=== PATIENT | female | born 1955 | race Caucasian/White ===

== ENCOUNTER → 2018-12-07 | Outpatient (CLI) | payer OTHER ==
[~2018-12-07] MED LIST: ASPI81CH PO; AZIT250 PO; DIABETA PO; DIPATR PO; IRBHYD150 PO; LOSA25 PO; METF500 PO; NEBI10 PO; NEBI5 PO; ONDA4ODT MM; RXDIPATR PO; RXONDA4ODT MM; TRIHYD253A PO; [UNRECOGNIZED DRUG - OTHER] PO
[2018-12-10 09:58] LABS: Adenovirus F 40/41 Not Detected (NOT DETECT); Astrovirus Not Detected (NOT DETECT); Campylobacter Sp Not Detected (NOT DETECT); Cryptosporidium Not Detected (NOT DETECT); Cyclospora Cayetanensis Not Detected (NOT DETECT); E. Coli O157 Not Detected (NOT DETECT); Entamoeba Histolytica Not Detected (NOT DETECT); Enteroaggregative E. coli-EAEC Not Detected (NOT DETECT); Enteropathogenic E. coli-EPEC Not Detected (NOT DETECT); Enterotoxigenic E. coli-ETEC Not Detected (NOT DETECT); Giardia Lamblia Not Detected (NOT DETECT); Norovirus GI/GII Not Detected (NOT DETECT); Plesiomonas Shigelloides Not Detected (NOT DETECT); Rotavirus A Not Detected (NOT DETECT); Salmonella Sp Not Detected (NOT DETECT); Sapovirus Not Detected (NOT DETECT); Shiga Toxin-prod E. coli-STEC Not Detected (NOT DETECT); Shigella/Enteroin E. coli-EIEC Not Detected (NOT DETECT); Vibrio Cholerae Not Detected (NOT DETECT); Vibrio Sp Not Detected (NOT DETECT); Yersinia Enterocolitica Not Detected (NOT DETECT)
== END | disposition home or self-care (01) ==
LOC: LAB SHORT 11:30 → LAB SRC 11:30
PROVIDERS: Physician Assistant
DX: K52.9 Noninfective gastroenteritis and colitis, unspecified (principal)
CPT/HCPCS: 87507

== ENCOUNTER → 2019-04-12 | Outpatient (CLI) | payer OTHER | LOC: LAB 11:40 → LAB SHORT 11:40 | DX: L08.9 Local infection of the skin and subcutaneous tissue, unspecified (principal) | CPT/HCPCS: 87070; 87205 ==

== ENCOUNTER → 2019-06-27 | Outpatient (CLI) | payer OTHER | LOC: LAB 17:07 → LAB SHORT 17:07 | DX: L08.9 Local infection of the skin and subcutaneous tissue, unspecified (principal) | CPT/HCPCS: 87070; 87205 ==

== ENCOUNTER → 2021-01-26 | Outpatient (CLI) | payer OTHER ==
[2021-01-26 12:39] LABS: Appearance, Urine Clear (Clear); Bilirubin, Urine Neg (Neg); Blood, Urine 4+ (Neg); Color, Urine Yellow (P-Yellow); Glucose Qualitative, Urine 4+ (Neg); Ketones, Urine Neg (Neg); Leukocyte Esterase, Urine Neg (Neg); Nitrite, Urine Neg (Neg); Protein, Urine Neg (Neg); Specific Gravity, Urine 1.015 (1.003-1.022); Urobilinogen, Urine NORM (Normal)
[2021-01-26 13:19] LABS: Squamous Epithelial Cells Few /hpf (Few)
[2021-01-26 13:20] LABS: Bacteria Few /hpf
[2021-01-27 15:11] LABS: HPV 16 Negative (Negative); HPV 18 Negative (Negative); HPV OTHER HR TYPES Negative (Negative)
== END | disposition home or self-care (01) ==
LOC: LAB SRC 11:58 → LAB SHORT 11:58
PROVIDERS: Nurse Practitioner Family
DX: Z12.4 Encounter for screening for malignant neoplasm of cervix (principal); R35.0 Frequency of micturition
CPT/HCPCS: 81001; 87624; G0123

== ENCOUNTER → 2022-05-11 | Outpatient (CLI) | payer OTHER | END | disposition home or self-care (01) | LOC: LAB SHORT 12:55 → LAB 12:55 | DX: Z48.02 Encounter for removal of sutures (principal); L57.0 Actinic keratosis; L08.9 Local infection of the skin and subcutaneous tissue, unspecified | CPT/HCPCS: 87070; 87205 ==

== ENCOUNTER 2023-11-08 08:05 | Emergency (ER) | payer OTHER ==
[~2023-11-08] VITALS: Ht 160 cm; Wt 71.2 kg
[2023-11-08 08:35] VITALS: BP 140/83
[2023-11-08] MEDS ORDERED: CYCL10 PO (10:35)
[2023-11-08] MEDS ORDERED: Norco 5-325 Ta1 EACH PO (10:35)
== END 2023-11-08 10:40 | disposition home or self-care (01) ==
LOC: ER 08:05
DX: M75.01 Adhesive capsulitis of right shoulder (principal); I10 Essential (primary) hypertension; E11.9 Type 2 diabetes mellitus without complications; J45.909 Unspecified asthma, uncomplicated; Z88.1 Allergy status to other antibiotic agents; Z88.8 Allergy status to other drugs, medicaments and biological substances; Z79.84 Long term (current) use of oral hypoglycemic drugs; Z79.82 Long term (current) use of aspirin; Z79.899 Other long term (current) drug therapy
CPT/HCPCS: 93005; 93010; 96372; 99283-25; A9270; J1885

== ENCOUNTER → 2023-12-12 | Outpatient (CLI) | payer OTHER ==
[~2023-12-12] MED LIST changes: +CYCL10 PO; +Norco 5-325 Ta1 EACH PO
[2023-12-13 10:55] LABS: Candida species (DNA Probe) Negative (NEGATIVE); G. vaginalis (DNA Probe) Negative (NEGATIVE); T. vaginalis (DNA Probe) Negative (NEGATIVE)
== END ==
LOC: LAB 15:04 → LAB SHORT 15:04
PROVIDERS: Obstetrics & Gynecology
DX: N95.2 Postmenopausal atrophic vaginitis (principal)
CPT/HCPCS: 87480; 87510; 87660

== ENCOUNTER 2024-03-21 10:05 | Emergency (ER) | payer OTHER ==
[~2024-03-21] VITALS: Ht 160 cm; Wt 69.0 kg
[2024-03-21] MEDS ORDERED: JARDIANCE10 MG PO (10:24)
[2024-03-21] MEDS ORDERED: RYBELSUS14 MG PO (10:24)
[2024-03-21] MEDS ORDERED: Pregabalin 75 MG Cap PO ONE (10:25)
[2024-03-21] MEDS ORDERED: Ketorolac Tromethamine 30mg Vial IV ONE (10:25)
[2024-03-21] MEDS ORDERED: LIPITOR80 MG PO (10:25)
[2024-03-21] MEDS ORDERED: DYRENIUM PO (10:25)
[2024-03-21] MEDS ORDERED: HYDROmorphone HCl/Pf 1MG SYR IV ONE ×2 (10:25→12:00)
[2024-03-21] MEDS ORDERED: SENNA LAXATIVE8.6 MG PO (13:07)
[2024-03-21] MEDS ORDERED: LYRICA50 M1 PO (13:07)
[2024-03-21] MEDS ORDERED: ONDA4ODT MM (13:07)
[2024-03-21] MEDS ORDERED: HYDMOR2 PO (13:09)
[2024-03-21] MEDS ORDERED: PREG50 PO (13:09)
[2024-03-21 13:30] VITALS: BP 125/69
== END 2024-03-21 13:48 | disposition home or self-care (01) ==
LOC: ER 10:05
DX: M48.02 Spinal stenosis, cervical region (principal); M50.122 Cervical disc disorder at C5-C6 level with radiculopathy; M50.123 Cervical disc disorder at C6-C7 level with radiculopathy; Z88.8 Allergy status to other drugs, medicaments and biological substances; Z88.1 Allergy status to other antibiotic agents; Z79.899 Other long term (current) drug therapy; Z79.82 Long term (current) use of aspirin; J45.909 Unspecified asthma, uncomplicated; E11.9 Type 2 diabetes mellitus without complications; I10 Essential (primary) hypertension
CPT/HCPCS: 96374; 96375; 96376; 99283-25; A9270; J1170; J1885

== ENCOUNTER 2024-08-26 08:48 | Inpatient (IN) | payer OTHER ==
[~2024-08-26] VITALS: Ht 160 cm; Wt 75.5 kg
[~2024-08-26 08:48] MED LIST changes: -ASPI81CH PO; +ATOR40TA PO; +Aspir 8181 MG PO; +DYRENIUM PO; +HYDMOR2 PO; +JARDIANCE10 MG PO; -LOSA25 PO; +LOSA50 PO; +LYRICA50 M1 PO; +PREG50 PO; +RYBELSUS14 MG PO; +SENNA LAXATIVE8.6 MG PO
[2024-08-26 09:15] LABS: BASOPHILS ABSOLUTE AUTO 0.07 K/mm3 (0.00-0.23); BASOPHILS PERCENT AUTO 1 % (0-2); EOSINOPHILS ABSOLUTE AUTO 0.07 K/mm3 (0.00-0.68); EOSINOPHILS PERCENT AUTO 1 % (0-6); Hematocrit 35.7 % (33.0-51.0); Hemoglobin 12.1 g/dL (11.5-16.0); IMMATURE GRAN ABSOLUTE AUTO 0.04 K/mm3 (0.00-0.10); IMMATURE GRAN PERCENT AUTO 0 % (0-1); LYMPHOCYTES ABSOLUTE AUTO 1.24 K/mm3 (0.84-5.20); LYMPHOCYTES PERCENT AUTO 13 % (21-46); MONOCYTES ABSOLUTE AUTO 0.79 K/mm3 (0.16-1.47); MONOCYTES PERCENT AUTO 8 % (4-13); Mean Corpuscular HGB 31.2 pg (26.0-34.0); Mean Corpuscular HGB Conc 33.9 g/dL (31.5-36.5); Mean Corpuscular Volume 92 fL (80-100); Mean Platelet Volume 8.7 fL (9.1-12.4); NEUTROPHILS ABSOLUTE AUTO 7.28 K/mm3 (1.96-9.15); NEUTROPHILS PERCENT AUTO 77 % (41-73); Platelet Count 269 K/mm3 (150-400); RDW Coefficient Variation 12.8 % (11.7-14.2); RDW Standard Deviation 42.9 fL (35.1-46.3); Red Blood Cell Count 3.88 M/mm3 (3.80-5.20); White Blood Cell Count 9.49 K/mm3 (4.00-11.30)
[2024-08-26] MEDS ORDERED: NS 1,000 ML IV SCH ×2 (09:20→15:30)
[2024-08-26] MEDS ORDERED: Ondansetron HCl 2 MG / ML 2ML Vial IV ONE (09:30)
[2024-08-26] MEDS ORDERED: HYDROmorphone HCl/Pf 1MG SYR IV ONE (09:30)
[2024-08-26 09:36] LABS: Albumin, Blood 2.6 g/dL (3.4-5.0); Albumin/Globulin Ratio 0.6 (0.8-1.8); Bilirubin, Total 0.5 mg/dL (0.1-1.0); Bun/Creatinine Ratio 27.6 (12.0-20.0); Calcium, Blood 8.8 mg/dL (8.5-10.1); Creatinine, Blood 0.87 mg/dL (0.40-1.00); Globulin, Blood 4.1 g/dL (2.2-4.0); Potassium, Blood 3.9 mmol/L (3.5-5.5); Total Protein, Blood 6.7 g/dL (6.4-8.2)
[2024-08-26] MEDS ORDERED: Cefepime HCl 2,000 MG in NS 100 ML IV ONE (11:40)
[2024-08-26 11:46] LABS: Influenza A, PCR NEGATIVE (NEGATIVE); Influenza B, PCR NEGATIVE (NEGATIVE); Resp Syncytial Virus, PCR NEGATIVE (NEGATIVE); SARS-Cov-2 (COVID-19) PCR, MMC NEGATIVE (NEGATIVE)
[2024-08-26] MEDS ORDERED: Vancomycin HCL 1,000 MG in NS 250 ML IV ONE (12:00)
[2024-08-26 15:09] LABS: Source, Urine Clean Catch
[2024-08-26] MEDS ORDERED: FLU VACC TS2024-25(6MOS UP)/PF 45 MCG/0.5 ML SYRINGE IM SCH (15:25)
[2024-08-26] MEDS ORDERED: FentaNYL Citrate 50 MCG/ML 2 ML Injection IV PRN (15:25)
[2024-08-26 15:26] LABS: Appearance, Urine Clear (Clear); Bilirubin, Urine Neg (Neg); Blood, Urine Neg (Neg); Color, Urine Yellow (P-Yellow); Glucose Qualitative, Urine 3+ (Neg); Ketones, Urine Neg (Neg); Leukocyte Esterase, Urine Neg (Neg); Nitrite, Urine Neg (Neg); Protein, Urine Neg (Neg); Specific Gravity, Urine 1.015 (1.003-1.022); Urobilinogen, Urine NORM (Normal)
[2024-08-26] MEDS ORDERED: OxyCODONE 5 mg/Acetamin 325 mg TABLET PO PRN ×2 (15:30→19:40)
[2024-08-26] MEDS ORDERED: Ondansetron HCl 2 MG / ML 2ML Vial IV PRN (15:30)
[2024-08-26] MEDS ORDERED: Albuterol 2.5 MG/3 ML VIAL INH PRN (15:30)
[2024-08-26] MEDS ORDERED: Acetaminophen 325 MG TABLET PO PRN (15:30)
[2024-08-26] MEDS ORDERED: Azithromycin 500 MG in NS 250 ML IV SCH (16:00)
[2024-08-26] MEDS ORDERED: Insulin Human Lispro 100 Units/ML 3ML Syringe SC SCH (16:30)
[2024-08-26 17:11] LABS: Source, Urine Foley catheter
[2024-08-26 17:13] LABS: Appearance, Urine Clear (Clear); Bilirubin, Urine Neg (Neg); Blood, Urine Neg (Neg); Color, Urine Yellow (P-Yellow); Glucose Qualitative, Urine 3+ (Neg); Ketones, Urine Neg (Neg); Leukocyte Esterase, Urine Neg (Neg); Nitrite, Urine Neg (Neg); Protein, Urine Neg (Neg); Specific Gravity, Urine 1.015 (1.003-1.022); Urobilinogen, Urine NORM (Normal)
[2024-08-26] MEDS ORDERED: Piperacillin/Tazobactam Sod 3.375 GM in NS 100 ML IV ONE (17:35)
[2024-08-26 19:59] VITALS: BP 130/66
[2024-08-26] MEDS ORDERED: PREG100 PO (20:26)
[2024-08-26] MEDS ORDERED: DYAZIDE 37.5-21 EACH PO (21:59)
[2024-08-26] MEDS ORDERED: Methocarbamol500 MG PO (22:02)
[2024-08-27] MEDS ORDERED: Piperacillin/Tazobactam Sod 3.375 GM in NS 100 ML IV SCH
[2024-08-27 04:34] VITALS: BP 108/69
--- NOTE | 2024-08-27 04:55 | NUR ---
SUMMARY-PT ARRIVES TO ROOM C/O NECK DISCOMFORT. PT DOES NOT TOLERATE MUCH MOVEMENT. PT SLID TO BED. PT MEDICATED FOR PAIN WITH RELIEF. PT REPORTS SHE CAN ONLY EAT SOFT BITE SIZE. PT ALSO STATES SHE CAN ONLY TAKE HER PO MEDS WITH APPLESAUCE. PT MULLER IS IN PLACE AND DRAINING TO GRAVITY. PT IS WEARING A SOFT C-COLLAR. PT REMAINS ON O2 VIA NC @ 3LPM. PT REPOSITIONED TOLERATED. PT HAS BEEN AOX4. CALL LIGHT IN REACH AND BED ALARM ON.
[2024-08-27 07:24] VITALS: BP 133/80
[2024-08-27 07:53] LABS: BASOPHILS ABSOLUTE AUTO 0.06 K/mm3 (0.00-0.23); BASOPHILS PERCENT AUTO 1 % (0-2); EOSINOPHILS ABSOLUTE AUTO 0.27 K/mm3 (0.00-0.68); EOSINOPHILS PERCENT AUTO 4 % (0-6); Hematocrit 33.4 % (33.0-51.0); Hemoglobin 11.2 g/dL (11.5-16.0); IMMATURE GRAN ABSOLUTE AUTO 0.02 K/mm3 (0.00-0.10); IMMATURE GRAN PERCENT AUTO 0 % (0-1); LYMPHOCYTES ABSOLUTE AUTO 1.91 K/mm3 (0.84-5.20); LYMPHOCYTES PERCENT AUTO 27 % (21-46); MONOCYTES ABSOLUTE AUTO 0.61 K/mm3 (0.16-1.47); MONOCYTES PERCENT AUTO 9 % (4-13); Mean Corpuscular HGB 30.9 pg (26.0-34.0); Mean Corpuscular HGB Conc 33.5 g/dL (31.5-36.5); Mean Corpuscular Volume 92 fL (80-100); Mean Platelet Volume 8.7 fL (9.1-12.4); NEUTROPHILS ABSOLUTE AUTO 4.31 K/mm3 (1.96-9.15); NEUTROPHILS PERCENT AUTO 60 % (41-73); Platelet Count 241 K/mm3 (150-400); RDW Coefficient Variation 12.8 % (11.7-14.2); RDW Standard Deviation 43.2 fL (35.1-46.3); Red Blood Cell Count 3.63 M/mm3 (3.80-5.20); White Blood Cell Count 7.18 K/mm3 (4.00-11.30)
[2024-08-27 08:20] LABS: Bun/Creatinine Ratio 21.5 (12.0-20.0); Calcium, Blood 8.7 mg/dL (8.5-10.1); Creatinine, Blood 0.7 mg/dL (0.40-1.00)
[2024-08-27] MEDS ORDERED: Methocarbamol 500 MG Tab PO PRN (10:55)
[2024-08-27 15:54] VITALS: BP 129/87
--- NOTE | 2024-08-27 17:51 | NUR ---
VSS, A-Ox4, denies SOB, states 9 out of 10 pain that was well managed with prn percocet, on bedrest untill pt gets hard neck collor from home, on 3L NC. Lungs diminished with slight rhonchi in bases, heart regular, bowel sounds normative, +2 edema BLE +2 edema LUE, otto in place draining clear yellow urine. Pt can make needs known, call chaney in hand, bed in lowest position.
[2024-08-27 19:23] VITALS: BP 137/74
[2024-08-27] MEDS ORDERED: NS 250 ML IV PRN (19:45)
[2024-08-27] MEDS ORDERED: Pregabalin 50 MG Capsule PO SCH (21:00)
[2024-08-27] MEDS ORDERED: Atorvastatin 40 MG Tab PO SCH (21:00)
[2024-08-28 04:45] VITALS: BP 126/87
--- NOTE | 2024-08-28 05:44 | NUR ---
SUMMARY- PT PAIN MANAGED WELL. PT TOLERATES MOVEMENT MORE THIS SHIFT. PT HAS BEEN ABLE TO REST COMFORTABLY. PT REPOSITIONED TOLERATED. PT IS VOIDING WELL AND TAKING IN PO FLUIDS. PT CURRENTLY SLEEPING IN NO DISTRESS. CALL LIGHT IN REACH.
[2024-08-28 07:36] VITALS: BP 116/72
[2024-08-28] MEDS ORDERED: Amoxicillin/Clavulanate K 875 MG Tab PO SCH (09:00)
[2024-08-28] MEDS ORDERED: Triamter/HCthiazide 75/50 MG 1 TAB TAB PO SCH (09:00)
[2024-08-28] MEDS ORDERED: Lactobacil 2-S.Thermo-Bifido 1 1 Cap PO SCH (09:00)
[2024-08-28] MEDS ORDERED: Losartan Potassium 50 MG Tab PO SCH (09:00)
[2024-08-28] MEDS ORDERED: Empagliflozin 10 MG TAB PO SCH (09:00)
[2024-08-28] MEDS ORDERED: SEMAGLUTIDE 14 MG TABLET PO SCH (09:00)
[2024-08-28] MEDS ORDERED: AMOCLA875 PO (12:49)
[2024-08-28] MEDS ORDERED: Percocet 5-3251 EACH PO (12:50)
[2024-08-28] MEDS ORDERED: VISBIOME 112.51 EACH PO (12:50)
--- NOTE | 2024-08-28 15:51 | NUR ---
VSS, A-Ox4, denies SOB, states 8 out of 10 pain that was well managed with prn percocet, ambulates with hard neck brace on only, SB with walker, on RA. Lungs diminished, heart regular, bowels sounds normative. Pt can make needs known, call chaney in hand, bed in lowest positon.
== END 2024-08-28 15:17 | disposition home or self-care (01) | DRG 871 ==
LOC: ER 08:48 → MEDS 15:24 → ENPENDDIS 08-28 13:26 → MEDS 08-28 15:17
PROVIDERS: Student in an Organized Health Care Education/Training Program; ADMIT Internal Medicine
DX: A41.9 Sepsis, unspecified organism (principal); G92.8 Other toxic encephalopathy; J18.9 Pneumonia, unspecified organism; G93.41 Metabolic encephalopathy; E86.0 Dehydration; R65.20 Severe sepsis without septic shock; I10 Essential (primary) hypertension; E78.5 Hyperlipidemia, unspecified; E11.65 Type 2 diabetes mellitus with hyperglycemia; E11.42 Type 2 diabetes mellitus with diabetic polyneuropathy; E66.9 Obesity, unspecified; Z88.8 Allergy status to other drugs, medicaments and biological substances; Z88.1 Allergy status to other antibiotic agents; Z79.85 Long-term (current) use of injectable non-insulin antidiabetic drugs; Z79.84 Long term (current) use of oral hypoglycemic drugs; Z79.82 Long term (current) use of aspirin; Z85.828 Personal history of other malignant neoplasm of skin; Z68.35 Body mass index [BMI] 35.0-35.9, adult
CPT/HCPCS: 0241U; 36415; 51702; 70450; 71045; 72126; 80048; 80053; 81003; 82947; 83605; 84145; 85025; 87040; 93005; 93010; 94760; 96361-59; 96365-59; 96366-59; 96368; 96375-59; 97116; 97162; 99285-25; A9270; J0456; J0692; J1170; J2405; J2543; J3370; J7030; J7050; Q9967

== ENCOUNTER 2024-10-31 11:39 | Day surgery (SDC) | payer OTHER ==
[~2024-10-31] VITALS: Ht 160 cm; Wt 69.6 kg
[~2024-10-31 11:39] MED LIST changes: +ALBU90OI INH; +AMOCLA875 PO; +ASPIR 8181 M1 PO; +Balanced Salt Epinephrine Irrigation Solution 500 mL IR SCH; +Colace100 MG PO; +DYAZIDE 37.5-21 EACH PO; +FOLIC ACID PO; +Lidocaine HCl/Pf 1% 5 ML VIAL XX SCH; +MAGNESIUM250 MG PO; +Methocarbamol500 MG PO; +Moxifloxacin HCL 0.5 MG/0.1 ML 0.4MLSYR LEFTEYE SCH; +ONDA4ODT PO; +OXYC10TA19 PO; +PHENYLEPHRINE\\TROPICAMIDE\\TETRACAINE OPHTHALMIC DILATING SOLN LEFTEYE PRN; +PREG100 PO; +Percocet 5-3251 EACH PO; +Povidone-Iodine 450 DROP/30 ML Solution LEFTEYE SCH; +TRIAMTERENE-HCTZ PO; +Triamcinolone Inj Susp 40 MG / ML 1ML Vial INJ SCH; +Triamcinolone Inj Susp 40 MG / ML 1ML Vial ONE; +VISBIOME 112.51 EACH PO; +VIT B12 PO
[2024-10-31] MEDS ORDERED: DIAZEPAM5 M2 PO (12:25)
[2024-10-31] MEDS ORDERED: RYBELSUS14 MG PO (12:26)
[2024-10-31] MEDS ORDERED: Midazolam HCl 1MG / ML 2ML Vial ONE (12:54)
[2024-10-31] MEDS ORDERED: Tetracaine HCl 0.5% Opth Soln 15 ml XX ONE (12:58)
--- NOTE | 2024-10-31 13:57 | NUR ---
10/31/24 [id number] Dino Yee PT REPORTED 6-7/10 NECK PAIN UPON D/C. SHE SAID THIS PAIN LEVEL IS BASELINE WHILE AMBULATING SINCE RECENT NECK SURGERY.
[2024-10-31 14:54] VITALS: BP 122/72
== END 2024-10-31 13:38 | disposition home or self-care (01) ==
LOC: ORSCSDS 11:39
PROVIDERS: Ophthalmology
PROC: 08RK3JZ Replacement of Left Lens with Synthetic Substitute, Percutaneous Approach (ICD-10-PCS; principal; 2024-10-31 13:00)
DX: E11.36 Type 2 diabetes mellitus with diabetic cataract (principal); H25.12 Age-related nuclear cataract, left eye; F41.9 Anxiety disorder, unspecified; I12.9 Hypertensive chronic kidney disease with stage 1 through stage 4 chronic kidney disease, or unspecified chronic kidney disease; E11.22 Type 2 diabetes mellitus with diabetic chronic kidney disease; N18.30 Chronic kidney disease, stage 3 unspecified; J44.9 Chronic obstructive pulmonary disease, unspecified; E66.9 Obesity, unspecified; Z68.27 Body mass index [BMI] 27.0-27.9, adult; Z79.899 Other long term (current) drug therapy
CPT/HCPCS: 82947; J2250; J3301; V2632